=== PATIENT | female | born 1960 | race Caucasian/White ===

== ENCOUNTER 2016-10-10 10:31 | Day surgery (SDC) | payer OTHER ==
[~2016-10-10] VITALS: Ht 154.9 cm; Wt 51.9 kg
[2016-10-10] VITALS (7 sets, daily range): BP systolic 119–154; BP diastolic 67–87; PULSE 65–89; RESP 13–17; O2SAT 98–100
[2016-10-10] MEDS: Lactated Ringer's 1,000 ML IV SCH ×2 (05:45→12:13)
[~2016-10-10 10:31] MED LIST: Clindamycin Inj 900 MG in IV Premix 1 EACH IV SCH; LEVO100T45 PO
[2016-10-10] MEDS ORDERED: fentaNYL-PF 50 mCg/mL 2 mL Inj ONE (10:32)
[2016-10-10] MEDS ORDERED: Ondansetron 2 mg/mL 2 mL Inj ONE (10:32)
[2016-10-10] MEDS ORDERED: Dexamethasone 4 mg/mL Inj ONE (10:32)
[2016-10-10] MEDS ORDERED: Propofol 10,000 mCg/mL 20 mL Inj ONE (10:32)
[2016-10-10] MEDS ORDERED: Lactated Ringer's 1,000 ML IV SCH (11:27)
[2016-10-10] MEDS ORDERED: Lactated Ringer's 500 ML IV PRN (11:27)
[2016-10-10] MEDS ORDERED: EPHEDrine Sulfate 50 mg/mL Inj IVPUSH PRN (11:30)
[2016-10-10] MEDS ORDERED: Phenylephrine 10,000 mCg/mL Inj IVPUSH PRN (11:30)
[2016-10-10] MEDS ORDERED: Dexamethasone 4 mg/mL Inj IVPUSH PRN (11:30)
[2016-10-10] MEDS ORDERED: MetoCLOpramide 5 mg/mL 2 mL Inj IVPUSH PRN (11:30)
[2016-10-10] MEDS ORDERED: fentaNYL-PF 50 mCg/mL 2 mL Inj IVPUSH PRN (11:30)
[2016-10-10] MEDS ORDERED: HYDROmorphone 1 mg/mL Inj IVPUSH PRN (11:30)
--- NOTE | 2016-10-10 11:49 | PCM.HPANE ---
Patient Data Surgeon Admitting Provider: Attending Provider:Blair Mccann MD Primary Care Physician:Bowen Stern MD Other Provider:[facility] Reason for Visit Complication Of Breast Implant Ht/WT & BMI Height (Feet): 5 Height (Inches): 1 Weight (Kilograms): 51.9 Body Mass Index 21.00 Allergies Coded Allergies: Contrast Media (Unverified Allergy, Severe, SKIN RASH-24 HOURS,FACIAL SWELLING, 01/12/16) iodine (Verified Allergy, Severe, RASH/SWELLING, 01/12/16) Past Anesthesia History Anesthesia History: Positive for:: Anesthesia Reactions (NAUSEA), Denies:: Abnormal Airway, Difficult Intubation, Fam Anesthesia Reaction, Fam Malignant Hypertherm, Malignant Hyperthermia Diabetes History Hx Diabetes?: No MRSA MRSA: No Medications Home Meds Incl Beta Ketty: No Reported Medications Levothyroxine (Levoxyl)100 Mcg [id number] Mcg PO DAILY Ref 0 10/09/16 Discontinued Reported Medications Levothyroxine (Levoxyl)112 Mcg [id number] Mcg PO DAILY Ref 0 01/12/16 Cholecalciferol (Vitamin D3) (Vitamin D3)5,000 Unit Tablet5,000 Unit PO DAILY 12/22/15 History History of ENT Problems?: No HEENT History: Denies:: Abnormal Airway Difficult Intubation Dysphagia Hearing Problem Denture Type: None Teeth Condition: Within Normal Limits Hx of Heart Problems?: Yes Cardiovascular History: Positive for:: Heart Murmur (past hx of murmur, not heard recently) Irregular Heartbeat ("skips a beat from time to time," no associated syncope) Denies:: AICD Atrial Fibrillation Chest Pain Hypertension Pacemaker Valvular Heart Disease Hx of Respiratory Problem?: No Respiratory History: Denies:: Oxygen Administration Use of C-PAP Machine Hx Neurologic Problems?: No Neurological History: Denies:: CVA Dementia Hx of GI Problems?: No Hx of Problems?: No Genitourinary History: Denies:: Kidney Stones Urinary Tract Infection Female Hx: Positive for:: Problems with Breasts? (Hx of karyn mastectomies, reconstruction- revision of current admission probl) Denies:: Currently Other History/Comment Breast Cancer s/p radiation and surgery Skin History: Positive for:: History Skin Disorders? (RASHES) Denies:: Pressure Ulcers Hx Musculoskeletal Problems?: No Musculoskeletal History: Denies:: Joint Replacement Hx of Psycho/Social Problems?: Yes Psycho Social History: Denies:: Anxiety Hx Depression Hx Surgeries?: Yes (DBL MASTECTOMY W/ RECONSTRUCTION) Hx Any Other Health Problems?: Yes Other History: Positive for:: Cancer (rt breast 2007, with recurrence) Thyroid Disease (S/P DIMITRIS-THYROIDECTOMY) Denies:: Endocrine Disease (C/OF NIGHT SWEATS) Hospitalization History Blood Transfusions: Denies:: Blood Transfusions Hx Diabetes: Yes Hx Alcohol Use: YesHx Substance Use: No Smoking Status: Never Smoker Have You Smoked inLast 12 mo: No Stop/Bang Treated for Sleep Apnea?: No S-Snoring: Do You Snore Loudly: No T-Tired: feel tired, fatigued: No O-Obsered: Observed not breath: No P-Blood Pressure: treated: No B- Body Mass Index > 35 kg/m2: No A- Age over 50: Yes N- Neck Large Circumference: No G- Gender Male: No FRANCISCO JAVIER Total Score: 1 Risk Assessment Category Category 1A: Patient has history of documented sleep apnea, and HAS NOT received any narcotic, sedative or anesthesia administration during this stay. Category 1B: Patient has history of documented sleep apnea, and HAS received any narcotic , sedative or anesthesia administration during this stay Category 2: Patient has SUSPECTED Obstructive Sleep Apnea, and HAS received any narcotic , sedative or anesthesia administration during this stay. Category 3: Patient has SUSPECTED Obstructive Sleep Apnea and HAS NOT received narcotic, sedative or anesthesia administration during this stay. Category 4: Outpatient in Procedural Areas with known sleep apnea or who screen positive for High Risk via the STOP/BANG questionnaire. Exam Exam Vital Signs Vital Signs Date Time Temp Pulse Resp B/P Pulse Ox O2 Delivery O2 Flow Rate FiO2 10/10/16 10:53 36.1 82 16 130/79 100 Room Air General Appearance: Alert, Oriented X3, Cooperative HEENT/AIRWAY: MP 2 Lungs: Clear to Auscultation Heart: Exam Unremarkable Meds/Labs/Diagnostics Admission Meds Current Medications Lactated Ringer's (Lr) 1,000 ml @ 120 mls/hr Q8H20M IV Last administered on t 05:45; Start 10/10/16 at 05:00; Stop 10/10/16 at 13:19 Plan Impression Patient chart reviewed, patient interviewed and anesthestic plan with risks, benefits, and alternatives discussed, and informed consent obtained. ASA Physical Status: ASA3 Severe Disease Anesthetic Plan: GA Bene/Risks/Altern/Consents: Yes HP Complete Prior to Induction: Yes Tony Portillo MD Oct 10, 2016 11:48
[2016-10-10] MEDS ORDERED: Bacitracin 50,000 unit Inj IRRIGATION ONE (12:13)
[2016-10-10] MEDS ORDERED: Lidocaine 1% 50 mL Inj INFILTRATE ONE (12:13)
[2016-10-10] MEDS ORDERED: oxyCODONE-Acetamin 5-325 mg Tablet PO PRN (14:15)
--- NOTE | 2016-10-10 15:10 | PCM.ANEP1 ---
Post Anesthesia PACU Phase 1 Assessment Vital Signs Vital Signs Date Time Temp Pulse Resp B/P Pulse Ox O2 Delivery O2 Flow Rate FiO2 10/10/16 14:35 80 16 154/87 98 Room Air 10/10/16 14:25 89 14 130/80 99 Room Air 10/10/16 14:20 81 13 143/87 100 Simple Mask 10 10/10/16 14:15 65 15 122/74 99 Simple Mask 10 10/10/16 14:10 36.0 66 17 119/74 99 Simple Mask 10 10/10/16 10:53 36.1 82 16 130/79 100 Room Air Anesthetic Administered: GA Level of Alertness: Awake, talking CASTILLO's with Equal Strength: Yes Pain: No Nausea or Vomiting: No CV Function & Hydration Stable: Yes Airway Device: Oralpharangeal Airway Lungs: Clear to Auscultation Dermatome Level: Full Sensation PACU Phase 2 Assessment Complications: No Follow up Care: N/A Patient Instructions Provided: N/A Tony Portillo MD Oct 10, 2016 15:10
[2016-10-10] MEDS: Ondansetron 2 mg/mL 2 mL Inj IVPUSH PRN ×2 (15:15→15:41)
--- NOTE | 2016-10-13 03:44 | OP ---
[address] [address] OPERATIVE REPORT PATIENT: BARRON LAO : 1960 MR#: [id number] ADMIT: 10/10/2016 JOB ID: [id number] DATE OF SURGERY: 10/10/2016 PREOPERATIVE DIAGNOSIS(ES): 1. Status post right breast reconstruction with residual deformity. 2. Impending erosion of right breast implant. 3. Attenuated and inadequate soft tissue of the right reconstruction. POSTOPERATIVE DIAGNOSIS(ES): 1. Status post a right breast reconstruction with residual deformity. 2. Impending erosion of right breast implant. 3. Attenuated and inadequate soft tissue of the right reconstruction. PROCEDURE: 1. Removal of intact right breast implant. 2. Replacement of right breast implant with the immediate insertion of breast prosthesis for reconstruction. 3. Revision breast reconstruction with peripheral capsulotomy as well as anterior capsulotomy. 4. Fat graft to the anterior skin flap. SURGEON: Blair Mccann MD. BIG DATA DEVELOPER: Harvey Hu PA-C, who was present for necessary retraction, exposure and closure of incision. ANESTHESIA: General anesthesia. ESTIMATED BLOOD LOSS: 20 cc. COMPLICATIONS: None apparent. DRAINS: None. SPECIMEN: None. INDICATIONS FOR PROCEDURE: This is a 56 year female patient with history of breast cancer, status post bilateral mastectomy with breast reconstruction. The patient had significant margin issues necessitating reexcision of soft tissue from the right anterior skin flap, leaving patient with a very thin remaining skin flap. The patient had an episode of drainage through the incision approximately 7-8 months after the reconstruction, highly suspicious for erosion of the implant through the incision. At this point, removal of the current breast prosthesis with replacement of a new prosthesis as well as capsulotomy to create more room for the implant is indicated. I will also attempt to fat graft the thin anterior flap to increased soft tissue coverage over the implant in preparation for future nipple-areolar reconstruction. PROCEDURE AND FINDINGS: The patient was identified in the preoperative area. Surgical site was marked. The patient was then taken back to the operating room and placed supine on the operating table. Appropriate time-outs were taken. General anesthesia was induced smoothly. The patient was then prepped and draped in the usual sterile manner. First turned my attention to the right reconstruction. There is a very thinned area of soft tissue and very attenuated scar on the lateral aspect of her mastectomy scar. An ellipse was then designed to encompass the thin area on the scar. Incision was then made with a #15 blade just through the dermis. This ellipse was then de-epithelialized and deepened the incision down to the underlying AlloDerm and through the AlloDerm into the implant pocket along the inferior aspect of the de-epithelialized ellipse. The patient's implant was then removed. The pocket was irrigated with copious amounts of antibiotic solution. At this point, I incised the junction between the anterior and posterior capsule from approximately the 1 o'clock position [address] the way around the 9 o'clock position down to the 6 o'clock position to the 4 o'clock position. Along the inframammary fold, the inframammary fold was lowered to the desired position that was marked in the preoperative area laterally. I extended the pocket by approximately 1 cm superiorly. A subpectoral dissection was carried out to the level of the clavicle. The superior edge of the anterior capsule was feathered at the edge of the capsule selectively to prevent the formation of a contraction band in this area. This was done by incision through the capsule with electrocautery for approximately 2 cm from the incision every 1-2 cm apart. Once this has been done, I turned my attention to obtaining fat graft. Two small stab incisions were then made in the left and right lower quadrant. Through this incision 300 cc of tumescent solution was infiltrated to the periumbilical subcutaneous tissue. Using power assisted liposuction suction, I removed approximately 30-40 cc of fat in addition to the aspirate. The fat was then processed using the Rev[employer]box system following the cutter banana room's directions. Once the fat had been processed, it was loaded into a 10 cc syringe. It was then infiltrated into the superior flap to several small stab incisions. Overall, the superior flap was able to be grafted except for small area approximately 1 cm thick where the skin was directly on the AlloDerm and I could not develop a plane to allow fat graft to be injected. Once this has been done, an Allergan Style 410, 330 cc LX implant was obtained. It was soaked in antibiotic solution. It was then placed into the implant pocket. Care was taken to massage the implant to make sure it is nice and mobile and able to be pushed all the way up to the level of the clavicle. Once this has been done, a layer of 2-0 PDS [id number] sutures was used to reapproximate the AlloDerm. A layer of 3-0 Monocryl deep dermal sutures were then placed, followed by 4-0 Monocryl running subcuticular suture. The patient tolerated the procedure well. Needle count, sponge count and instrument counts were correct at the end of the procedure. The patient was extubated and transported to recovery in stable condition.
== END 2016-10-10 23:59 | disposition home or self-care (01) ==
LOC: SAS 10:31
PROVIDERS: ATTEND Plastic Surgery
DX: N65.0 Deformity of reconstructed breast (principal); T85.49XS Other mechanical complication of breast prosthesis and implant, sequela; D05.11 Intraductal carcinoma in situ of right breast; Z90.13 Acquired absence of bilateral breasts and nipples; E03.9 Hypothyroidism, unspecified
CPT/HCPCS: 19328; 19340; 20926; C1789; J0171; J1100; J2250; J2405; J2765; J3010; J7120

== ENCOUNTER → 2016-11-28 | Day surgery (SDC) | payer OTHER ==
[~2016-11-28] VITALS: Ht 154.9 cm; Wt 51.9 kg
[2016-11-28] VITALS (10 sets, daily range): BP systolic 119–159; BP diastolic 68–85; PULSE 70–83; RESP 15–18; O2SAT 98–99
[~2016-11-28] MED LIST changes: +Acetaminophen IV 1,000 MG in IV Premix 1 EACH IV ONE; +Atropine 0.4 mg/mL Inj IVPUSH PRN; +Bacitracin 50,000 unit Inj ONE; +CLIN150C2 PO; -Clindamycin Inj 900 MG in IV Premix 1 EACH IV SCH; +Dexamethasone 4 mg/mL Inj IVPUSH PRN; +Dexamethasone 4 mg/mL Inj ONE; +EPHEDrine Sulfate 50 mg/mL Inj IVPUSH PRN; +EPHEDrine/NS 5 mg/mL 5 mL Syringe ONE; +HYDROmorphone 1 mg/mL Inj IVPUSH PRN; +Labetalol 5 mg/mL 4 mL Inj IV PRN; +Lactated Ringer's 1,000 ML IV ONE; +Lactated Ringer's 1,000 ML IV SCH; +Lactated Ringer's 500 ML IV PRN; +Ondansetron 2 mg/mL 2 mL Inj IVPUSH PRN; +Ondansetron 2 mg/mL 2 mL Inj ONE; +Phenylephrine 10,000 mCg/mL Inj IVPUSH PRN; +Propofol 10,000 mCg/mL 20 mL Inj ONE; +fentaNYL-PF 50 mCg/mL 2 mL Inj IVPUSH PRN; +fentaNYL-PF 50 mCg/mL 2 mL Inj ONE; +hydrALAZINE 20 mg/mL Inj IVPUSH PRN; +oxyCODONE-Acetamin 5-325 mg Tablet PO PRN
--- NOTE | 2016-11-28 08:46 | PCM.HPANE ---
Patient Data Surgeon Admitting Provider: Attending Provider:Blair Mccann MD Primary Care Physician:Bowen Stern MD Other Provider:[facility] Reason for Visit Right Breast Implant Complication After Mastectomy Ht/WT & BMI Height (Feet): 5 Height (Inches): 1 Weight (Kilograms): 52.62 Body Mass Index 21.00 Allergies Coded Allergies: Contrast Media (Unverified Allergy, Severe, SKIN RASH-24 HOURS,FACIAL SWELLING, 01/12/16) iodine (Verified Allergy, Severe, RASH/SWELLING, 01/12/16) Past Anesthesia History Anesthesia History: Denies:: Abnormal Airway, Anesthesia Reactions (nausea), Difficult Intubation, Fam Anesthesia Reaction, Fam Malignant Hypertherm, Malignant Hyperthermia Diabetes History Hx Diabetes?: Yes MRSA MRSA: No Medications Reported Medications Clindamycin HCl (Cleocin)150 Mg [id number] Mg PO Q8H 11/27/16 Levothyroxine (Levoxyl)100 Mcg [id number] Mcg PO DAILY Ref 0 10/09/16 History History of ENT Problems?: No HEENT History: Denies:: Abnormal Airway Difficult Intubation Dysphagia Hearing Problem Denture Type: None Teeth Condition: Within Normal Limits Hx of Heart Problems?: Yes Cardiovascular History: Positive for:: Heart Murmur (past hx of murmur, not heard recently) Irregular Heartbeat ("skips a beat from time to time," no associated syncope) Denies:: AICD Atrial Fibrillation Chest Pain Hypertension Pacemaker Valvular Heart Disease Hx of Respiratory Problem?: No Respiratory History: Denies:: Oxygen Administration Use of C-PAP Machine Hx Neurologic Problems?: No Neurological History: Denies:: CVA Dementia Hx of GI Problems?: No Hx of Problems?: No Genitourinary History: Denies:: Kidney Stones Urinary Tract Infection Female Hx: Positive for:: Problems with Breasts? (Hx of karyn mastectomies, revision of implant current admission problem) Denies:: Currently Skin History: Positive for:: History Skin Disorders? (RASHES) Denies:: Pressure Ulcers Hx Musculoskeletal Problems?: No Musculoskeletal History: Denies:: Joint Replacement Hx of Psycho/Social Problems?: Yes Psycho Social History: Denies:: Anxiety Hx Depression Hx Surgeries?: Yes (karyn mastectomy, reconstruction, thyroidectomy) Hx Any Other Health Problems?: Yes Other History: Positive for:: Cancer (rt breast 2007, with recurrence) Thyroid Disease Denies:: Endocrine Disease Hospitalization History Blood Transfusions: Denies:: Blood Transfusions Hx Diabetes: Yes Hx Alcohol Use: YesHx Substance Use: No Smoking Status: Never Smoker Have You Smoked inLast 12 mo: No Stop/Bang S-Snoring: Do You Snore Loudly: No T-Tired: feel tired, fatigued: No O-Obsered: Observed not breath: No P-Blood Pressure: treated: No B- Body Mass Index > 35 kg/m2: No A- Age over 50: Yes N- Neck Large Circumference: No G- Gender Male: No FRANCISCO JAVIER Total Score: 1 Risk Assessment Category Category 1A: Patient has history of documented sleep apnea, and HAS NOT received any narcotic, sedative or anesthesia administration during this stay. Category 1B: Patient has history of documented sleep apnea, and HAS received any narcotic , sedative or anesthesia administration during this stay Category 2: Patient has SUSPECTED Obstructive Sleep Apnea, and HAS received any narcotic , sedative or anesthesia administration during this stay. Category 3: Patient has SUSPECTED Obstructive Sleep Apnea and HAS NOT received narcotic, sedative or anesthesia administration during this stay. Category 4: Outpatient in Procedural Areas with known sleep apnea or who screen positive for High Risk via the STOP/BANG questionnaire. Exam Exam General Appearance: Alert, Oriented X3, Cooperative, No Acute Distress HEENT/AIRWAY: MP 2 Lungs: Clear to Auscultation Heart: Exam Unremarkable Plan Impression Patient chart reviewed, patient interviewed and anesthestic plan with risks, benefits, and alternatives discussed, and informed consent obtained. ASA Physical Status: ASA2 Mod Systemic Disease Anesthetic Plan: GA Bene/Risks/Altern/Consents: Yes HP Complete Prior to Induction: Yes Garland Vick MD Nov 28, 2016 08:46
--- NOTE | 2016-11-28 15:34 | PCM.ANEP1 ---
Post Anesthesia PACU Phase 1 Assessment Vital Signs Vital Signs Date Time Temp Pulse Resp B/P Pulse Ox O2 Delivery O2 Flow Rate FiO2 11/28/16 12:36 37.0 76 16 159/82 98 Room Air Anesthetic Administered: GA Level of Alertness: Awake, talking CASTILLO's with Equal Strength: Yes Pain: Yes Nausea or Vomiting: No CV Function & Hydration Stable: Yes Airway Device: Oxygen Delivery: Room Air Lungs: Clear to Auscultation PACU Phase 2 Assessment Complications: No Follow up Care: No Patient Instructions Provided: N/A Garland Vick MD Nov 28, 2016 15:34
--- NOTE | 2016-12-04 14:59 | OP ---
[address] [address] OPERATIVE REPORT PATIENT: BARRON LAO : 1960 MR#: [id number] ADMIT: 11/28/2016 JOB ID: [id number] DATE OF SURGERY: 11/28/2016 PREOPERATIVE DIAGNOSIS(ES): 1. Right breast cancer, status post mastectomy and breast reconstruction. 2. Right implant exposure. POSTOPERATIVE DIAGNOSIS(ES): 1. Right breast cancer, status post mastectomy and breast reconstruction. 2. Right implant exposure. PROCEDURES: 1. Removal of intact right breast implant. 2. Revision, right breast reconstruction with superior and inferior capsulotomy, advancement of inframammary abdominal skin as well as complex closure of the incision in a [id number] manner. 3. Right breast reconstruction with immediate placement of tissue mica builder. SURGEON: Blair Mccann M.D. ENCAPSULATOR: UMA Baeza was present for necessary retraction and exposure and closure. ANESTHESIA: General anesthesia. COMPLICATIONS: None apparent. ESTIMATED BLOOD LOSS: 5 cc. DRAINS: A 15 round Gama drain on the right side. SPECIMEN: None. INDICATIONS FOR PROCEDURE: This is a patient with a history of recurrent right breast cancer with a history of breast conservation therapy. The patient underwent right-sided mastectomy and reconstruction. The patient had very thin anterior flap due to the need for re- resection. The patient's reconstruction was completed in December of 2015. However, the patient had impending implant exposure in August and September of 2016. I took the patient back to the operating room in October of 2016 for re-closure of the incision. However, the patient implant eventually exposed. At this point, revision reconstruction, removal of the implant and replacement of tissue mica builder for reconstruction are indicated. PROCEDURES AND FINDINGS: The patient was identified in the preoperative area. Surgical site was marked. The patient was then taken back to the operating room, placed supine on the operating table. Appropriate time-outs were taken. General anesthesia was induced smoothly. The patient was then prepped and draped in the usual sterile manner. It was noted that patient has a wound on the lateral aspect of the mastectomy incision with exposed implant and AlloDerm. The patient's mastectomy incision was opened in its entirety. The patient's previous implant was removed. The pocket was irrigated with copious amounts of normal saline. At this point, the patient's skin flaps were palpated. The inferior flap is of normal thickness, slightly on the thin side. Superiorly there is approximately 1 cm of very thin soft tissue followed by a model of soft tissue followed by a normal soft tissue after that. The very thin soft tissue was then excised with a #10 blade. I then turned my attention to the implant pocket. I performed inferior capsulotomy at the junction of the anterior and posterior capsule. This was done through the capsule into underlying subcutaneous tissue. I was able to elevate from the soft tissue off of the rectus fascia to allow for something from mammary abdominal skin to be advanced superiorly. I then performed the superior capsulotomy again allowing some of the superior skin to be advanced inferiorly. Once this has been done, and #15 drain was placed along the inframammary fold exiting through a separate lateral stab incision. An Allergan style NV 133, 13 cm tissue mica builder was then obtained. I filled the tissue mica builder to 100 cc after air has been removed from the tissue mica builder. The mica builder was then placed into the implant pocket. At this point, the excess superior inferior skin flap was measured. Excess skin was marked. Incision was then made around the excess skin which was in the configuration of an ellipse. Incision was made into the dermis. This excess skin was then de-epithelialized. Care was taken that most of the excess skin was kept to the inferior flap. The excess inferior flap has been deepithelialized, was then tucked under the superior flap and sutured in place using several 3-0 Monocryl horizontal mattress sutures. This essentially ensured that additional soft tissue was under the thin portion of the superior skin flap. Once this has been done, a layer of 3-0 Monocryl deep dermal sutures were then placed, followed by 4-0 Monocryl running subcuticular suture. Using a 21-gauge butterfly needle, the tissue mica builder was expanded to 150 cc. After extension, the skin flap appears to be quite relaxed without any changes in vascularity. Skin glue was applied. The patient tolerated the procedure well. Needle count, sponge count, instrument counts were correct at the end of the procedure. The patient was extubated and transported to recovery in stable condition.
== END | disposition home or self-care (01) ==
LOC: SAS 11:59
PROVIDERS: ATTEND Plastic Surgery
DX: T85.49XA Other mechanical complication of breast prosthesis and implant, initial encounter (principal); C50.911 Malignant neoplasm of unspecified site of right female breast; Z90.11 Acquired absence of right breast and nipple; E03.9 Hypothyroidism, unspecified; F41.9 Anxiety disorder, unspecified
CPT/HCPCS: 19380; J0690; J1100; J2405; J3010; J7120